=== PATIENT | female | born 1980 | race Caucasian/White ===

== ENCOUNTER 2025-07-05 02:08 | Emergency (ER) | payer MEDICAID ==
[~2025-07-05] VITALS: Ht 157.5 cm; Wt 90.7 kg
[2025-07-05 02:11] VITALS: BP 190/100
[2025-07-05] MEDS ORDERED: SULFAMETH/TRIMETH 800/160 MG TABLET ONE (02:40)
[2025-07-05] MEDS: SULFAMETH/TRIMETH 800/160 MG TABLET PO ONE (02:43)
[2025-07-05] MEDS ORDERED: SULF1TAB48 PO (02:47)
[2025-07-05 02:54] VITALS: BP 153/95; O2SAT 97
== END 2025-07-05 02:54 | disposition home or self-care (01) ==
LOC: ER 02:18
DX: L97.819 Non-pressure chronic ulcer of other part of right lower leg with unspecified severity (principal); F17.210 Nicotine dependence, cigarettes, uncomplicated; F12.90 Cannabis use, unspecified, uncomplicated
CPT/HCPCS: A4606; A4663